=== PATIENT | female | born 1955 | race Caucasian/White ===

== ENCOUNTER → 2017-05-26 | Outpatient (CLI) | payer MEDICARE, OTHER ==
[~2017-05-26] MED LIST: ALEN70TA48 PO; BECL8.7A5 IH; ESOM40CA PO; FLUT1DIS IH; MONT10TA21 PO; PRIM250T30 PO; PRIM50 PO; SUCR1TAB PO; TRAM50TA4 PO; ZOLP10 PO
[2017-05-26 17:57] LABS: B-TYPE NATRIURETIC PEPTIDE 231 pg/mL (0-100)
[2017-05-26 18:16] LABS: ANION GAP 9 mmol/L (8-16); CALCIUM, TOTAL 7.9 mg/dL (8.8-10.5); CARBON DIOXIDE 24 mmol/L (22-29); CHLORIDE 107 mmol/L (98-107); CREATININE 0.69 mg/dL (0.60-1.30); GLOMERULAR FILTR. RATE CALC > 60 mL/min (>60); POTASSIUM 4.3 mmol/L (3.5-5.1); SODIUM SERUM 140 mmol/L (136-145); UREA NITROGEN, BLOOD 15 mg/dL (7-18)
== END | disposition home or self-care (01) ==
LOC: LABPV 13:33
PROVIDERS: ATTEND Internal Medicine Cardiovascular Disease
DX: I11.0 Hypertensive heart disease with heart failure (principal); I50.9 Heart failure, unspecified; E11.8 Type 2 diabetes mellitus with unspecified complications